=== PATIENT | male | born 1975 | race Caucasian/White ===

== ENCOUNTER 2017-11-19 08:42 | Emergency (ER) | payer OTHER ==
[~2017-11-19] VITALS: Ht 182.9 cm; Wt 99.8 kg
[2017-11-19] MEDS ORDERED: GENTAK5 ML INTRAOCULR (09:23)
[2017-11-19 09:29] VITALS: BP 166/101
== END 2017-11-19 09:29 | disposition home or self-care (01) ==
LOC: M.ERS 08:42
DX: H10.33 Unspecified acute conjunctivitis, bilateral (principal); J45.909 Unspecified asthma, uncomplicated